=== PATIENT | male | born 1930 | race Caucasian/White ===

== ENCOUNTER 2017-04-08 09:50 | Emergency (ER) | payer OTHER ==
[~2017-04-08] VITALS: Ht 177.8 cm; Wt 79.0 kg
[~2017-04-08 09:50] MED LIST: ATORVASTATIN CA40 MG PO; IRON325 MG PO; LACTINEX CHEWA1 EACH PO; LO-DOSE ASPIRIN81 M1 PO; NITROSTAT0.4 MG SL; NORCO 5/3251 TABLET PO; PLAVIX75 MG PO; TAB-A-VITE1 EACH PO; TYLENOL REGULA325 MG PO; VITAMIN B-1100 MG PO; VITAMIN B-12500 MC3 PO; VITAMIN D31000 UNIT PO
[2017-04-08 10:40] LABS: HEMATOCRIT 28.7 % (38.0-50.0); MCH 34.2 PG (29.0-34.0); MCHC 35.9 G/DL (30.0-36.0); MCV 95.3 FL (86-99); PLATELET COUNT 174 K/uL (156-360); RBC DIS.WIDTH-CV 20.5 % (11.8-14.6); RBC DIS.WIDTH-SD 47.2 % (39-53); RED BLOOD COUNT 3.01 M/uL (4.00-5.50)
[2017-04-08 10:54] LABS: CHLORIDE 112 mEq/L (99-109); POTASSIUM 4.5 mEq/L (3.7-5.4); SODIUM 139 mEq/L (136-147)
[2017-04-08 10:56] LABS: GLUCOSE 96 mg/dL (70-99); PROTHROMBIN TIME 11.3 SEC (10.2-12.9)
[2017-04-08 10:57] LABS: ANION GAP 8 MEQ/L (2-14)
[2017-04-08 10:59] LABS: PTT 29.2 SEC (25-37)
[2017-04-08 11:00] LABS: GFR ESTIMATE (CALCULATED) > 59 mL/min/
[2017-04-08 11:01] LABS: UREA NITROGEN (BUN) 18 mg/dL (9-23)
[2017-04-08 11:04] LABS: TROP-I INTERPRETATION NEGATIVE; TROPONIN-I < 0.01 ng/mL (0.0-0.30)
[2017-04-08 13:30] VITALS: BP 157/81
== END 2017-04-08 14:09 | disposition home or self-care (01) ==
LOC: EME 09:50
PROVIDERS: Emergency Medicine
PROC: 0HQ1XZZ Repair Face Skin, External Approach (ICD-10-PCS; principal; 2017-04-08)
DX: S01.112A Laceration without foreign body of left eyelid and periocular area, initial encounter (principal); S00.03XA Contusion of scalp, initial encounter; W06.XXXA Fall from bed, initial encounter; Y92.193 Bedroom in other specified residential institution as the place of occurrence of the external cause; I44.0 Atrioventricular block, first degree; Z79.02 Long term (current) use of antithrombotics/antiplatelets; Z79.82 Long term (current) use of aspirin; F17.200 Nicotine dependence, unspecified, uncomplicated
CPT/HCPCS: 70450; 80048; 84484; 85027; 85610; 85730; 93005; 99281; 99284